=== PATIENT | male | born 1970 | race African-American/Black ===

== ENCOUNTER 2019-01-29 06:14 | Emergency (ER) | payer MEDICAID ==
[~2019-01-29] VITALS: Ht 170.2 cm; Wt 59.0 kg
[2019-01-29 06:15] VITALS: BP_SYST 141
--- NOTE | 2019-01-29 06:19 | NUR ---
Placed in room 3 . Placed on soft tile setter, blood pressure machine and pulse oximeter. To gown for exam. Side rails up. Report given to BELINDA BECKHAM.
--- NOTE | 2019-01-29 06:22 | NUR ---
Pt BIBA to ER w/ c/o of SOB for the past couple days with worsening SOB last night. Pt presents with audible wheezing and abdominal retractions noted. Pt received Albuterol prior to arriving to hospital. Pt has Hx of asthma and HIV. Pt AAO. Will continue to monitor.
[2019-01-29] MEDS ORDERED: IPRATROPIUM/ALBUTEROL SULFATE 3 ML AMPUL.NEB (DUONEB) INH ONE (06:30)
[2019-01-29] MEDS ORDERED: methylPREDNISolone SOD SUCC/PF 62.5 MG/ML VIAL IVP ONE (06:30)
[2019-01-29] MEDS ORDERED: ALBUTEROL SULFATE 0.083% 2.5 MG/3 ML VIAL.NEB INH ONE ×2 (06:34→08:00)
[2019-01-29] MEDS ORDERED: IPRATROPIUM BROM 0.5 MG/2.5 ML VIAL.NEB (ATROVENT) INH ONE (06:34)
[2019-01-29] MEDS ORDERED: LEVOFLOXACIN 500 MG/D5W 100 ML IV ONE (07:00)
--- NOTE | 2019-01-29 07:00 | NUR ---
# 20 gauge angiocath placed to RT FA. Use of asceptic technique. Opsite placed over site. Blood return noted. Blood for lab drawn from site. Flushed with 10 cc of normal saline. No evidence of infiltration noted. Patient tolerated well.
--- NOTE | 2019-01-29 07:16 | NUR ---
Report given to oncoming RN at bedside via SBAR approach.
[2019-01-29 07:22] LABS: BASOPHILS # (AUTO) 0.1 K/uL (0.0-0.2); BASOPHILS % (AUTO) 0.7 % (0.0-2.0); EOSINOPHILS # (AUTO) 0.3 K/uL (0.0-0.4); EOSINOPHILS % (AUTO) 2.9 % (0.0-4.0); HEMATOCRIT 48.9 % (36-54); HEMOGLOBIN 16.6 g/dL (14.0-18.0); LYMPHOCYTES # (AUTO) 1.5 K/uL (1.0-5.5); LYMPHOCYTES % (AUTO) 15.5 % (20.5-51.5); MEAN CORPUSCULAR HEMOGLOBIN 32 pg (27-31); MEAN CORPUSCULAR HGB CONC 34 % (32-36); MEAN CORPUSCULAR VOLUME 95 fL (79.0-98.0); MONOCYTES # (AUTO) 0.5 K/uL (0.0-1.0); MONOCYTES % (AUTO) 5.2 % (1.7-9.3); NEUTROPHILS # (AUTO) 7.2 K/uL (1.8-7.7); NEUTROPHILS % (AUTO) 75.7 % (40.0-70.0); PLATELET COUNT (AUTO) 264 K/uL (130-430); RED BLOOD CELL COUNT(AUTO) 5.15 MIL/uL (4.2-6.2); RED CELL DISTRIBUTION WIDTH 13.7 % (9.0-15.0); WHITE BLOOD COUNT (AUTO) 9.5 K/uL (4.8-10.8)
[2019-01-29] MEDS ORDERED: ALBMDI INH (07:29)
[2019-01-29] MEDS ORDERED: MONT10TA25 PO (07:29)
[2019-01-29] MEDS ORDERED: MOME13HF2 INH (07:29)
[2019-01-29] MEDS ORDERED: Atripla PO (07:29)
[2019-01-29] MEDS ORDERED: NOR10 PO (07:29)
--- NOTE | 2019-01-29 07:29 | NUR ---
Medication reconciliation completed with information provided by patient. Any prior medication reconciliation on file was reviewed and corrected.
--- NOTE | 2019-01-29 07:45 | NUR ---
Phlebotomy at bedside to redraw.
--- NOTE | 2019-01-29 08:05 | NUR ---
Dr. Pichardo in to speak with patient.
[2019-01-29] MEDS ORDERED: NACL 0.9% 1,000 ML IV ONE (08:15)
[2019-01-29] MEDS ORDERED: MAGNESIUM SULFATE 1 GM/2 ML VIAL IVP ONE (08:15)
[2019-01-29 08:17] LABS: CALCIUM 9.2 mg/dL (8.4-11.0); CREATININE 1.03 mg/dL (0.55-1.30); POTASSIUM 3.8 mmol/L (3.5-5.1)
[2019-01-29 08:23] LABS: ALBUMIN 4.1 g/dL (3.4-4.8); TOTAL BILIRUBIN 0.2 mg/dL (0.0-1.0)
[2019-01-29 08:29] LABS: PROTHROMBIN TIME 10.1 SECS (9.5-12.5)
[2019-01-29 08:45] LABS: CKMB RELATIVE INDEX 3.2 (0.0-2.9); CREATINE KINASE MB 15.2 ng/mL (0-3.6)
--- NOTE | 2019-01-29 09:25 | NUR ---
Patient given written and verbal discharge instructions and verbalizes understanding. ER MD discussed with patient the results and treatment provided. Patient in stable condition. ID arm band removed. IV catheter removed intact and dressing applied, no active bleeding. Rx of prednisone, albuterol, levaquin, promethazine with codeine given. Patient educated on pain management and to follow up with PMD. Pain Scale 0/10. Opportunity for questions provided and answered. Medication side effect fact sheet provided.
[2019-01-29 09:31] VITALS: BP_SYST 129
== END 2019-01-29 09:31 | disposition home or self-care (01) ==
LOC: SED 06:14
DX: J45.901 Unspecified asthma with (acute) exacerbation (principal); J44.9 Chronic obstructive pulmonary disease, unspecified; Z88.0 Allergy status to penicillin; Z79.899 Other long term (current) drug therapy
CPT/HCPCS: 36415; 36600; 71045; 80053; 82550; 82553; 82803; 83880; 84484; 85025; 85379; 85610; 87040; 93005; 94640; 96365; 96367; 96375; 99284; J1956; J2930; J3475; J7030; J7613